=== PATIENT | male | born 1980 | race Caucasian/White ===

== ENCOUNTER 2019-08-16 21:06 | Emergency (ER) | payer MEDICAID ==
[~2019-08-16] VITALS: Ht 175.3 cm; Wt 120.8 kg
[2019-08-16 21:21] VITALS: Ht 175.3 cm; Wt 120.8 kg
[2019-08-16 21:43] LABS: BASOPHIL % 0.6 % (0-2); PLATELET COUNT 300 x10^3mcL (130-400); RED CELL DISTRIBUTION WIDTH 14.5 % (11.5-14.5)
[2019-08-16 21:54] LABS: CARBON DIOXIDE 31.9 mmol/L (21-32); CHLORIDE SERUM 105 mmol/L (98-107); GFR1 > 60 mL/min; GLUCOSE SERUM 110 mg/dL (74-106); POTASSIUM SERUM 3.3 mmol/L (3.5-5.1); SODIUM SERUM 146 mmol/L (136-145)
[2019-08-16 21:59] LABS: ALBUMIN 3.8 g/dL (3.4-5.0); ALKALINE PHOSPHATASE 83 U/L (46-116); ALT/SGPT 45 U/L (16-63); AST/SGOT 20 U/L (15-37); BILIRUBIN TOTAL 0.6 mg/dL (0.20-1.00); TOTAL PROTEIN, SERUM 8.5 g/dL (6.4-8.2)
[2019-08-16 22:16] LABS: microscopic required? YES; urine erythrocyte 3+ (NEGATIVE)
[2019-08-17 00:20] VITALS: BP 164/109
== END 2019-08-17 00:20 | disposition home or self-care (01) ==
LOC: ED 21:06
PROVIDERS: Emergency Medicine
DX: N20.0 Calculus of kidney (principal); R31.9 Hematuria, unspecified
CPT/HCPCS: J1885; J2405; J3010; J7030

== ENCOUNTER 2019-08-17 11:15 | Emergency (ER) | payer MEDICAID ==
[~2019-08-17] VITALS: Ht 172.7 cm; Wt 120.2 kg
[2019-08-17 11:29] VITALS: Ht 172.7 cm; Wt 120.2 kg
[2019-08-17 12:32] LABS: CALCIUM 8.8 mg/dL (8.5-10.1); CARBON DIOXIDE 29.6 mmol/L (21-32); CHLORIDE SERUM 104 mmol/L (98-107); CREATININE SERUM 0.9 mg/dL (0.7-1.3); GFR1 > 60 mL/min; GLUCOSE SERUM 107 mg/dL (74-106); POTASSIUM SERUM 3.1 mmol/L (3.5-5.1); SODIUM SERUM 139 mmol/L (136-145)
[2019-08-17 12:37] LABS: ALBUMIN 3.4 g/dL (3.4-5.0); ALKALINE PHOSPHATASE 80 U/L (46-116); ALT/SGPT 42 U/L (16-63); AST/SGOT 26 U/L (15-37); BILIRUBIN TOTAL 0.62 mg/dL (0.20-1.00); TOTAL PROTEIN, SERUM 7.8 g/dL (6.4-8.2)
[2019-08-17 12:58] LABS: BASOPHIL % 0.5 % (0-2); PLATELET COUNT 275 x10^3mcL (130-400)
[2019-08-17 13:00] LABS: RED CELL DISTRIBUTION WIDTH 14.8 % (11.5-14.5)
[2019-08-17 13:43] LABS: UA SPECIFIC GRAVITY 1.015 (1.005-1.035); microscopic required? YES; urine erythrocyte 3+ (NEGATIVE)
[2019-08-17 16:18] VITALS: BP 168/115
== END 2019-08-17 16:18 | disposition home or self-care (01) ==
LOC: ED 11:15
PROVIDERS: Emergency Medicine
DX: N20.0 Calculus of kidney (principal); N39.0 Urinary tract infection, site not specified; I10 Essential (primary) hypertension; E11.9 Type 2 diabetes mellitus without complications
CPT/HCPCS: J2270; J7030

== ENCOUNTER 2019-09-05 21:07 | Inpatient (IN) | payer MEDICAID ==
[~2019-09-05] VITALS: Ht 172.7 cm; Wt 115.8 kg
--- NOTE | 2019-09-05 21:13 | NUR ---
PT CAME TO ED CO FLANK PAIN, BLEEDING FROM PENIS AND FEVER. PT STS HE ALSO HAS WEAKNESS AND N/V. PT STS IT IS PAINFUL WHEN HE URINATES. PT STS THIS HAS HAPPENED BEFORE, WITHOUT THE BLOOD. NO S/S OF DISTRESS. RESP E/U. WILL CONTINUE TO MONITOR.
[2019-09-05 21:14] VITALS: Ht 172.7 cm; Wt 115.8 kg
--- NOTE | 2019-09-05 21:31 | NUR ---
PT MEDICATED PER ORDER. PT VERBALIZED UNDERSTANDING OF MEDICATON TEACHING. SEE EMAR FOR DETAILS.
[2019-09-05 21:45] LABS: BASOPHIL % 0.3 % (0-2); PLATELET COUNT 305 x10^3mcL (130-400); RED CELL DISTRIBUTION WIDTH 14.2 % (11.5-14.5)
[2019-09-05 22:05] LABS: ALBUMIN 3.6 g/dL (3.4-5.0); ALKALINE PHOSPHATASE 85 U/L (46-116); ALT/SGPT 25 U/L (16-63); AST/SGOT 14 U/L (15-37); BILIRUBIN TOTAL 0.86 mg/dL (0.20-1.00); CHLORIDE SERUM 101 mmol/L (98-107); CREATININE SERUM 0.9 mg/dL (0.7-1.3); GFR1 > 60 mL/min; GLUCOSE SERUM 109 mg/dL (74-106); SODIUM SERUM 140 mmol/L (136-145)
[2019-09-05 22:07] LABS: POTASSIUM SERUM 2.9 mmol/L (3.5-5.1); TOTAL PROTEIN, SERUM 8.3 g/dL (6.4-8.2)
--- NOTE | 2019-09-05 22:22 | NUR ---
PT MEDICATED PER ORDER. PT VERBALIZED UNDERSTANDING OF MEDICATION TEACHING. SEE EMAR FOR DETAILS. PT IS LAYING ON GURNEY IN POSITION OF COMFORT. NO S/S OF DIS TRESS. RESP E/U. WILL CONTINUE TO MONITOR.
[2019-09-05 22:37] LABS: microscopic required? YES; urine erythrocyte 3+ (NEGATIVE)
--- NOTE | 2019-09-05 23:12 | NUR ---
PT MEDICATED PER ORDER. PT VERBALIZED UNDERSTANDING OF MEDICATION TEACHING. SEE EMAR FOR DETAILS.
--- NOTE | 2019-09-05 23:56 | NUR ---
PT ASLEEP IN [facility]. RESP E/U, VSS. RATES PAIN 9/10, QUICKLY FALLS BACK ASLEEP.
[2019-09-06] VITALS (8 sets, daily range): BP systolic 143–188; BP diastolic 97–108
[2019-09-06] MEDS ORDERED: FORTAMET500 M1 (00:11)
--- NOTE | 2019-09-06 01:14 | NUR ---
REPORT GIVEN TO MATILDA CONTRERAS TO ASSUME CARE
--- NOTE | 2019-09-06 01:35 | NUR ---
RECEIVED PT FROM ED VIA WHEELCHAIR, ACCOMPANIED BY NURSE. PT CAME IN DUE TO RIGHT FLANK PAIN. PT AAOX4, ABLE TO FOLLOW COMMANDS AND MAKE NEEDS KNOWN. MED-SURG, DENIES CP/PRESSURE AT THIS TIME. PALPABLE PULSES TO ALL EXTREMETIES. NO EDEMA NOTED. LUNG SOUNDS CTA, BREATHING EVEN AND UNLABORED ON RA. PT C/O PRODUCTIVE COUGH WITH SCANT AMOUNT OF YELLOW SPUTUM. ABD SOFT AND ROUND. ACTIVE BS X4 QUAD. C/O TENDERNESS TO RLQ. DENIES N/V/D AT THIS TIME. C/O 10/10 RIGHT FLANK PAIN AND RLQ. WILL MEDICATE ACCORDINGLY. VOIDS FREELY, BRP. PT C/O BURNING ON URINATION AND BLOOD IN URINE. AMBULATORY. IV TO RH PATENT AND INTACT. SITE WNL. ORINETED PT TO ENVIROMENT. BED AT LOWEST SETTING. SIDE RAILS X2 UP. CALL LIGHT WITHING REACH. WILL CONT TO MONITOR.
--- NOTE | 2019-09-06 01:40 | NUR ---
PT TRANSFERRED TO MED SURG FLOOR ACCOMPAINED BY EMT. NO S/S OF DISTRESS. RESP E/U. IV SITE PATENT, NO S/S OF INFILTRATION.
[2019-09-06 01:53] LABS: CHOLESTEROL/HDL RATIO 3.5
--- NOTE | 2019-09-06 02:15 | NUR ---
PT MEDICATED WITH PRN NORCO PER AUG FOR ABD AND FLANK PAIN. PT TOLERATING WELL. NO ACUTE DISTRESS NOTED. WILL CONT TO MONITOR.
[2019-09-06 03:29] LABS: AMPHETAMINE QUAL UR NONE DETECTED (See below)
--- NOTE | 2019-09-06 05:37 | NUR ---
PT SLEPT AT INTERVALS THROUGHOUT THE NIGHT, BREATHING EVEN AND UNLABORED ON RA. PT STATES RELIEF OF PAIN. RATES PAIN AT 4/10 AT THIS TIME. IV TO RH INFUSING NS AT 100ML/HR. ALL NEEDS ASSESSED AND ATTENDED TO. NO ACUTE DISTRESS NOTED. SAFETY PRECAUTIONS IN PLACE. CALL LIGHT WITHING REACH. WILL CONT TO MONITOR AND ENDORSE CARE TO AM NURSE.
--- NOTE | 2019-09-06 06:30 | NUR ---
BP OF 153/[address] GRUBBS, NO NEW ORDERS RECEIVED. WILL ENDORSE CARE TO AM NURSE.
[2019-09-06 06:46] LABS: BASOPHIL % 0.4 % (0-2); PLATELET COUNT 257 x10^3mcL (130-400); RED CELL DISTRIBUTION WIDTH 14.3 % (11.5-14.5)
[2019-09-06 06:58] LABS: CARBON DIOXIDE 30.8 mmol/L (21-32); CHLORIDE SERUM 106 mmol/L (98-107); GFR1 > 60 mL/min; GLUCOSE SERUM 95 mg/dL (74-106); POTASSIUM SERUM 3.8 mmol/L (3.5-5.1); SODIUM SERUM 143 mmol/L (136-145)
--- NOTE | 2019-09-06 08:45 | NUR ---
PATIENT A/OX4 ABLE TO MAKE NEEDS KNOWN, FOLLOWS COMMANDS, DENIES HEADACHE/CP. LUNGS CTA, NO RESP DISTRESS ON RA, BREATHING E/U. BOWEL SOUNDS ACTIVE, ABD SOFT NONDISTENDED. RT FLANK PAIN PRESENT, AND C/O DYSURIA, REPORTS YELLOW/CLERA URINE. SKIN INTACT, IV SITE WNL. UROLOGIST SAW PATIENT AT BEDSIDE AND INFORMED ME HE REMOVED STENTS AT BEDSIDE AND MEDICINE TEAM TO F/U WITH PYELENOPPHRITIS. CHARGE NURSE MADE AWARE. WILL MEDICATE PAIN PER EMAR.
--- NOTE | 2019-09-06 11:30 | NUR ---
DR MENDEZ AND MEDICAL TEAM MAKING ROUNDS, INFORMED PATIENT WILL CONTINUE IV ANTIBIOTICS TO TREAT PYELONEPHRITIS. PATIENT VERBALIZED UNDERSTANDING AND COOPERATIVE WITH PLAN OF CARE. ALL QUESTIONS/CONCERNS ANSWERED.
--- NOTE | 2019-09-06 13:10 | NUR ---
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 INFORMED HIM OF CURRENT VISITATION POLICY, NO VISITORS AT THIS TIME. OFFERED TO LOG BRANDER FRONT LOAD TRASH TRUCK DRIVER FROM [employer] IF HIS DAUGHTER DROPS IT OFF, PATIENT AGREEABLE. DENIES PAIN AND NO DISTRESS NOTED AT THIS TIME.
--- NOTE | 2019-09-06 15:41 | NUR ---
Discount pharmacy card and list to low cost medical clinics given to patient by Donny Palafox.
--- NOTE | 2019-09-06 18:30 | NUR ---
PATIENT TOLERATED DINNER MEAL WELL, REPORTS HE IS IN "A LITTLE BIT" OF FLANK PAIN AND THAT HE STILL HAS BURNING PAIN UPON URINATION. PAIN MEDICATION OFFERED. STATES TOLERABLE AT THIS TIME AND WILL REQUEST FOR PAIN MEDICATION LATER. NO OTHER SIGNFICANT CHANGE IN CONDITION. WILL CONT TO MONITOR AND ENDORSE TO NOC NURSE.
--- NOTE | 2019-09-06 19:20 | NUR ---
RECEIVED PT SITTING IN CHAIR AT BEDSIDE. PT IS AAOX4. BREATHING IS EVEN AND UNLABORED ON RA. LUNG SOUNDS CTA. DENIES SOB. ABD IS SOFT AND NONDISTENDED. BS ACTIVE. DENIES N/V/D. VOIDS FREELY. DENIES DYSURIA. AMBULATORY. SKIN INTACT. C/O 09/29 R FLANK PAIN, PT STATED HE WANTS THE PAIN MEDICATION LATER TONIGHT AROUND 2100. VERBALIZED WILL BRING MEDICATION AROUND THAT TIME. IV TO RH RUNNING NS AT 100 CC/HR. NO ERYTHEMA NOTED. CALL LIGHT WITHIN REACH. WILL CONTINUE TO MONITOR.
[2019-09-07] VITALS (10 sets, daily range): BP systolic 137–180; BP diastolic 87–110
--- NOTE | 2019-09-07 00:33 | NUR ---
REPORT GIVEN TO PELON GREY.
--- NOTE | 2019-09-07 01:00 | NUR ---
RECHECK PT'S BP:155/92, PT DENIES ANY PAIN OR DISCOMFORT.
--- NOTE | 2019-09-07 05:09 | NUR ---
DR ALMAGUER MADE AWARE OF PT'S BP:182/112 THIS MORNING, NEW ORDER RECEIVED FOR NORVASC 5 MG PO X 1, MEDS GIVEN.
--- NOTE | 2019-09-07 05:57 | NUR ---
RECHECK PT'S BP:164/101, HYDRALAZINE 10 MG VIA IVP ADMINISTERED, WILL RECHECK PT'S BP.
--- NOTE | 2019-09-07 06:31 | NUR ---
RECHECK PT'S BP:157/87, IVF INFUSING WELL, DENIES ANY PAIN AT THIS TIME, AFEBRILE THIS MORNING, NO DISTRESS NOTED, WILL KEEP TO MONITOR.
[2019-09-07 06:33] LABS: BASOPHIL % 0.3 % (0-2); PLATELET COUNT 269 x10^3mcL (130-400); RED CELL DISTRIBUTION WIDTH 14.1 % (11.5-14.5)
[2019-09-07 06:45] LABS: CALCIUM 8.2 mg/dL (8.5-10.1); CARBON DIOXIDE 29.1 mmol/L (21-32); CHLORIDE SERUM 103 mmol/L (98-107); CREATININE SERUM 0.8 mg/dL (0.7-1.3); GFR1 > 60 mL/min; GLUCOSE SERUM 87 mg/dL (74-106); MAGNESIUM 1.7 mg/dL (1.8-2.4); PHOSPHOROUS 2.4 mg/dL (2.5-4.9); SODIUM SERUM 139 mmol/L (136-145)
--- NOTE | 2019-09-07 07:10 | NUR ---
RECIEVED PT RESTING IN BED WITH NO C/O PAIN OR DISTRESS. A/O X4 WITH NO RAMIREZ OR DIZZINESS. TELE#8 CONNECTED TO PT, DENIES ANY CP OR PRESSURE. NO EDEMA NOTED AND PEDAL PULSES PRESENT. LUNGS CTAB, NO SOB NOTED. PT AMBULATORY. NS 100ML/HR RUNNING IN RIGHT HAND, CDI. SAFETY PRECAUTIONS IN PLACE, CALL LIGHT WITHIN REACH, WILL MONITOR.
--- NOTE | 2019-09-07 13:54 | NUR ---
HYDRALAZINE GIVEN PER EMAR FOR HTN (155/97), WILL REASSESS BP.
--- NOTE | 2019-09-07 15:43 | NUR ---
Initial Nutrition Assessment: 223T/B VINICIUS TITUS 39M HR IA Dx: Sepsis, UTI PMHx: T2DM, Kidney stones, bilateral ureteral stents insertion PSHx: Appendectomy, bilateral ureteral stent insertion Labs: (09/06) K 3.0L, BUN 6L, A1C 7.1H Meds: D 50%, Humulin, KCL, Levaquin, Mag-ox, [place], Norvasc, Sodium chloride, Zestril Diet: CCHO 60 PO intake since admission: (09/05)B: 75%, (09/06)B: 75% Ht: 172.72cm/68in Wt: 115.836kg/254.8lbs BMI: 38.8 Bed scale: not accessible IBW: 70kg/154lbs %IBW: 165% ABW:81kg UBW: 295 per pt Age: 39 Food Allergies: Avocado Edema: none noted Last BM: 09/04 Skin: Skin intact Julián: 21 Nursing triggers: N/V/D > 3days Per H and P (09/05), pt is a 39 y/o male with PMH of DM type 2, Kidney stones, bilateral ureteral stents placement who came to the ER from home for abdominal pain. The pain has been on and off for 2 weeks but got worse yesterday, he describes the pain as sharp 10/10 in the right flank radiating to the right groin. [place] [facility] [place] Sepsis, Hypokalemia, hypertensive urgency. RD Note (09/06) Pt was lying in bed and awake during bedside visit. Pt reported good appetite and had all of his breakfast, and patient denied GI distress and chewing/swallowing difficulties. Per pt, he lost weight in a month and a half once he changed his diet. Pt indicated that he started following diabetic diet per his doctor's suggestion, and then he lost a lot of weight. According to patient, he was also taking vitamin C and B12 at home. Problem with: N/V/D/C: none Problems with: Chewing: Swallowing: none Current appetite: good per pt Recent wt change: Wt decreased per pt %wt change: 14% wt lost calculated from UBW Height: 68in per pt Vitamin/Supplement use: vitamin C and vitamin B12 Special diet at home: diabetic diet Physical activity: walking and playing football with his kids per pt Nutrition education given (specify specific nutrition education and handout given): Education on diabetic diet was provided verbally. Provide food examples of foods with carbohydrate, and encouraged patient not to cut out carbohydrate entirely and eat with moderation. Also recommended whole grain food options to the patient. Additionally, label reading tips for carbohydrate was explained to the patient. Encouraged patient to stop taking vitamin C supplement d/t its possible contribution to his kidney stones. Written education on diabetic diet and kidney stones were provided to patient, and patient accepted education. Food-drug interactions? Education given? n/a Estimated Nutritional Needs Based on body weight (81kg) Energy:2011-7150 kcal/day (30-35 kcal/kg for sepsis) Protein:121-162 g/day (1.5-2 g/kg for sepsis) Fluid:0603-6410 mL/day (1 mL/kcal) Nutrition Diagnosis: 1. Impaired nutrition utilization r/t endocrine dysfunction a/e/b pt elevated A1C level. 2. Unintentional weight loss r/t pathophysiological cause a/e/b pt reported rapid weight loss in a month and a half. Intervention 1. Recommend continue CCHO 60 diet 2. Recommend Glucerna BID for additional 440 kcal and 20g protein Recommendation provided to KORI Mcpherson, and DOCUMENTATION SPECIALIST [place] acknowledged. Monitor/Evaluate Goal: PO intake at least 75% of estimated needs Monitor: PO intake, Labs, GI function, body weight F/U in 3-5 days as moderate risk 09/09-
--- NOTE | 2019-09-07 15:44 | NUR ---
1. Recommend continue [facility] 60 diet 2. Recommend Glucerna BID for additional 440 kcal and 20g protein
--- NOTE | 2019-09-07 18:51 | NUR ---
PT RESTING IN BED WITH NO C/O PAIN OR DISTRESS. A/O X4 WITH NO RAMIREZ OR DIZZINESS. TELE#8 CONNECTED TO PT, DENIES ANY CP OR PRESSURE. NO EDEMA NOTED AND PEDAL PULSES PRESENT. LUNGS CTAB, NO SOB NOTED. PT AMBULATORY. NS 100ML/HR RUNNING IN RIGHT HAND, CDI. SAFETY PRECAUTIONS IN PLACE, CALL LIGHT WITHIN REACH, WILL ENDORSE CARE TO DAYCARE TEACHER.
--- NOTE | 2019-09-07 19:35 | NUR ---
RECEIVED PT RESTING IN BED, NO ACUTE DISTRESS NOTED. PT AOX4, DENIES RAMIREZ/DIZZINESS. TELE #8; SR- ST, DENIES CP. PULSES PALPABLE BILAT, DENIES NUMBNESS/TINGLING IN FEET. PT RESP EVEN AND UNLABORED ON RA, DENIES SOB. AND SOFT ROUND, DENIES ABD PAIN. PT VOIDS FREELY, DENEIS DYSURIA. PT DENIES FLANK PAIN. PT AFEBRILE. AMB. SKIN INTACT. IV SITE TO THE RT HAND, NO REDNESS, SWELLING OR PAIN NOTED. PT ON LEVAQUIN DAILY. CALL LIGHT WITHIN REACH, BED IN LOWEST POSITION, WILL CONTINUE TO MONITOR.
[2019-09-08] VITALS (7 sets, daily range): BP systolic 144–171; BP diastolic 86–111
--- NOTE | 2019-09-08 05:20 | NUR ---
PT RESTED IN INTERVALS DURING SHIFT, NO ACUTE CHANGES OCCURRING OVERNIGHT. PT REMAINS AFEBRILE, AMB TO RESTROOM WIHTOUT DIFFICULTY. IV SITE REMAINS PATENT TO RT HAND, NS @ 100ML/HR. NO REDNESS, SWELLING OR PAIN NOTED. PT DENIES N/V/D. PT DENIES FLANK PAIN, ALL COMFORT AND SAFETY MEASURES PROVIDED FOR, CALL LIGHT WITHIN REACH, BED IN LOWEST POSITION, WILL CONTINUE TO MONITOR.
[2019-09-08 06:28] LABS: CALCIUM 8.4 mg/dL (8.5-10.1); CARBON DIOXIDE 27.5 mmol/L (21-32); CHLORIDE SERUM 105 mmol/L (98-107); GFR1 > 60 mL/min; GLUCOSE SERUM 83 mg/dL (74-106); MAGNESIUM 1.8 mg/dL (1.8-2.4); SODIUM SERUM 140 mmol/L (136-145)
[2019-09-08 06:31] LABS: BASOPHIL % 0.4 % (0-2); PLATELET COUNT 320 x10^3mcL (130-400)
[2019-09-08 06:35] LABS: POTASSIUM SERUM 2.9 mmol/L (3.5-5.1)
--- NOTE | 2019-09-08 06:38 | NUR ---
RECEIVED A CALL FROM LAB IN REGARDS TO A CRITICAL K+= 2.9M, DECREASED FROM 3.0 YESTERDAY. PT RECEIVED A K-RIDER IN DAYSHIFT. PT DENIES CP, CHEST DISCOMFORT. PER DR. ALMAGUER, WILL ORDER A K-RIDER. ALL COMFORT AND SAFETY MEASURES PROVIDED FOR, CALL LIGHT WITHIN REACH, BED IN LOWEST POSITION, WILL CONTINUE TO MONITOR.
--- NOTE | 2019-09-08 07:10 | NUR ---
RECEIVED PT FROM NIGHT RN. PT RESTING IN BED WITH EYES CLOSE. PT DID NOT SLEEP WELL THROUGHOUT THE NIGHT PER REPORT. RES E/U WITH LUNG SOUND CLR ON ROOM AIR. TELE MONITOR 8. IV TO R HAND INFUSING AT 100 NS W NO REDNESS, NO SIGNS OF INFILTRATION NOTED. BED IN LOWEST POSITION CALL LIGHT WITHIN REACH. WILL CONTINUE TO MONITOR
--- NOTE | 2019-09-08 10:41 | NUR ---
PT RESTING IN BED WITH EYES CLOSED, BUT EASILY AROUSABLE. NOTED THAT IV LEVAQUIN DID NOT INFUSED. ALL LINES CHECKED AND UNCLAMPED. K RIDER WILL BE INFUSED AFTER INFUSION OF IV LEVAQUIN. NO SIGNIFICANT CHANGES NOTED.
--- NOTE | 2019-09-08 15:40 | NUR ---
CALLED NICOLE SHEIKH AND LEFT A VOICEMAIL REGARDING CULTURE SENSITIVITY RESULTS.
[2019-09-08] MEDS ORDERED: LEVAQUIN750 MG PO (16:08)
[2019-09-08] MEDS ORDERED: NOR5 PO (16:10)
[2019-09-08] MEDS ORDERED: ZES10 PO (16:11)
--- NOTE | 2019-09-08 18:04 | NUR ---
DIVISION [employer] REPORTS BP 171/106, GIVEN HYDRALAZINE PER EMAR. PT DENIES RAMIREZ. NO ACUTE DISTRESS NOTED.
--- NOTE | 2019-09-08 18:53 | NUR ---
BP REMAINS HIGH 169/112. PT REPORTS FEELING OF ANXIETY EVERY TIME HE GETS HIS BP TAKEN. INSTRUCTED HOW TO TAKE HIS OWN BLOOD PRESSURE TO REDUCE ANXIETY.
--- NOTE | 2019-09-08 19:25 | NUR ---
RECEIVED PT RESTING IN BED, PT DISCHARGE PENDING AN ADEQUATE BP. PT CURRENTLY REPORTS ANXIETY R/T THE BP CUFF. PT REPORTS HE FEELS STRESSED WHEN THE GETS HIS BP CHECKED. EDUCATED PT IN REGARDS TO RESTING IN BED WITH EYES CLOSED, TV OFF. GARTH RECHECK PT BP IN 30 MINS. PT VERBALIZES UNDERSTANDING. PT AOX4, DNEIS RAMIREZ/DIZZINESS.TELE #8; SR= 88, DENIES CP. PULSES PALPABLE BILAT, DENIES NUMBNESS/TINGLING IN FEET. PT RESP EVEN AND UNLABORED ON RA, DENIES SOB. AND SOFT ROUND, DENIES ABD PAIN. PT VOIDS FREELY, DENEIS DYSURIA. PT DENIES FLANK PAIN. PT AFEBRILE. AMB. SKIN INTACT. IV SITE TO THE RT HAND, NO REDNESS, SWELLING OR PAIN NOTED. PT ON LEVAQUIN DAILY. CALL LIGHT WITHIN REACH, BED IN LOWEST POSITION, WILL CONTINUE TO MONITOR.
--- NOTE | 2019-09-08 20:35 | NUR ---
SPOKE TO DR. ALMAGUER IN REGARDS TO PT PENDING D/C. LATEST BP= 151/101, HR 93. PT REPORTS ANXIETY WITH BP CHECKS, PT STATES HE HAS HAD THIS ISSUES SINCE 11 YO. EDUCATED PT WILL COOLABORATE WITH IN REGARDS TO MEDICATION AND WILL ALLOW PT TO CHECK HIS OWN BP WHEN FEELING CALM. PER DR ALMAGUER, WILL ORDER PO BP MED AND RECHECK. PT DENIES RAMIREZ/DIZZINESS. CALL LIGHT WITHIN REACH, BED IN LOWEST POSITION, WILL CONTINUE TO MONITOR.
--- NOTE | 2019-09-08 22:00 | NUR ---
OBTAINED PT BP= 144/90, HR 88. PT DENIES RAMIREZ/DIZZINESS. DENIES LIGHTHEADEDNESS UPON AMBULATION. SPOKE WITH PT IN REGARDS TO TRANSPORTAITON HOME, PT STATES HE DOESNT HAVE A RIDE AT THIS TIME, AND WOULD APPRECIATE A GOOD NIGHT REST BEFORE BEING D/C TOMORROW. UPDATED DR ALMAGUER IN REGARDS TO STATUS OF BP AND PT REQUEST TO HOLD D/C TIL TOMORROW. PER DR. ALMAGUER, OK TO WAIT TO DISCHARGE TOMORROW MORNING. PT AGREEABLE WITH PLAN AT THIS TIME, ALL COMFORT AND SAFETY MEASURES PROVIDED FOR, CALL LIGHT WITHIN REACH, BED IN LOWEST POSITION, WILL CONTINUE TO MONITOR.
--- NOTE | 2019-09-09 05:10 | NUR ---
PT RESTED IN INTERVALS DURING SHIFT, NO ACUTE CHANGES OCCURRING OVERNIGHT. VSS. PT DENIES DYSURIA. IV SITE REMAINS PATENT, NO REDNESS, SWELLING OR PAIN NOTED. PT AMB TO RESTROOM SEVERAL TIMES, DENIES N/V/D. ALL COMFORT AND SAFETY MEASURES PROVIDED FOR, CALL LIGHT WITHIN REACH, BED IN LOWEST POSITION, WILL CONTINUE TO MONITOR.
[2019-09-09 05:30] VITALS: BP 114/71
[2019-09-09 06:41] LABS: BASOPHIL % 0.5 % (0-2); PLATELET COUNT 360 x10^3mcL (130-400); RED CELL DISTRIBUTION WIDTH 14.1 % (11.5-14.5)
--- NOTE | 2019-09-09 07:30 | NUR ---
NICOLE RODRIGUEZVER ME WITH PT AND DISCUSSED POC. PT IS TO DISCHARGE TO HOME TODAY. PT IS AAOX4. RESP EVEN AND UNLABORED. TELE [address] READING NSR. PT STATES HE HAS MILD DYSURIA AT THIS TIME. IV CATH TO RH S/L. SITE WNL. NO S/S OF INFECTION OR INFILTRATION. CALL LIGHT WITHIN REACH. BED IN LOWEST POSITION. WILL CONTINUE TO MONITOR.
[2019-09-09 08:02] LABS: CARBON DIOXIDE 28.7 mmol/L (21-32); CHLORIDE SERUM 103 mmol/L (98-107); CREATININE SERUM 0.8 mg/dL (0.7-1.3); GFR1 > 60 mL/min; GLUCOSE SERUM 86 mg/dL (74-106); MAGNESIUM 1.9 mg/dL (1.8-2.4); POTASSIUM SERUM 3.1 mmol/L (3.5-5.1); SODIUM SERUM 141 mmol/L (136-145)
--- NOTE | 2019-09-09 09:10 | NUR ---
BLOOD PRESSURE 159/101, SCHEDULED NORVASC AND ZESTRIL PO GIVEN. LEVAQUIN IVPB INITIATED. PT DENIES PAIN AT THIS TIME. WILL CONTINUE TO MONITOR.
[2019-09-09 09:12] VITALS: BP 159/101
[2019-09-09 11:25] VITALS: BP 145/107
[2019-09-09 11:26] VITALS: BP 145/107
--- NOTE | 2019-09-09 13:00 | NUR ---
PT DISCHARGED TO HOME IN NO DISTRESS. DISCHARGE INSTRUCTIONS REVIEWED. ALL QUESTIONS ANSWERED. PT INFORMED ALL PRESCRIPTIONS WERE SENT TO THE PT'S INDICATED PHARMACY. TELE 8 REMOVED AND RETURNED TO V BELT SKIVER. IV CATH TO REMOVED INTACT. SITE WNL. COVERED WITH GAUZE AND BANDAID. VS:97.9F, 88, 18, 145/107, 98% ON R/A. PT DENIES PAIN UPON DISCHARGE. ALL PERSONAL BELONGINGS TAKEN WITH PT.
== END 2019-09-09 13:00 | disposition home or self-care (01) | DRG 720 ==
LOC: ED 21:07 → EDBEDREQ 09-06 01:03 → MU 09-06 01:03 → DU 09-06 23:56
PROVIDERS: Emergency Medicine; ADMIT Internal Medicine
PROC: 0TP97DZ Removal of Intraluminal Device from Ureter, Via Natural or Artificial Opening (ICD-10-PCS; principal; 2019-09-06)
DX: A41.9 Sepsis, unspecified organism (principal); E11.65 Type 2 diabetes mellitus with hyperglycemia; Z68.41 Body mass index [BMI] 40.0-44.9, adult; N10 Acute pyelonephritis; N13.2 Hydronephrosis with renal and ureteral calculous obstruction; A49.01 Methicillin susceptible Staphylococcus aureus infection, unspecified site; I16.0 Hypertensive urgency; E83.42 Hypomagnesemia; E87.6 Hypokalemia; R31.9 Hematuria, unspecified; Z87.442 Personal history of urinary calculi; Z79.84 Long term (current) use of oral hypoglycemic drugs; F17.210 Nicotine dependence, cigarettes, uncomplicated
CPT/HCPCS: 82962; G0378; J0360; J1956; J2270; J2543; J3475; J3480; J7030; Q0092